=== PATIENT | female | born 1955 | race Caucasian/White ===

== ENCOUNTER → 2016-09-19 | Outpatient (CLI) | payer BC ==
--- NOTE | 2016-09-19 13:34 | DI ---
DUPLEX COLOR DOPPLER CAROTID ULTRASOUND, 09/19/2016 12:52 PM: Clinical History: Carotid bruit Previous Exam: None at this facility. Technique: 2D real time imaging is supplemented with duplex color doppler ultrasound imaging. RIGHT CAROTID ARTERY: 2D real time imaging of the right carotid system shows a normal appearance of the right common caroti d artery and the carotid bulb as well as the proximal internal and external carotid arteries. Peak sy stolic velocities through the right common carotid, the external carotid, and the internal carotid ar e 122 cm/s, 82 cm/s, and 106 cm/s, respectively. All values correspond to diameter stenoses of 0-49%. LEFT CAROTID ARTERY: 2D real time imaging of the left carotid system shows a normal appearance of the left common carotid artery and the carotid bulb as well as the proximal internal and external carotid arteries. Peak syst olic velocities through the left common carotid, the external carotid, and the internal carotid are 1 27 cm/s, 94 cm/s, and 95 cm/s, respectively. The values for the external and internal carotid arterie s correspond to diameter stenoses of 0-49%. The value for the common carotid artery corresponds to a diameter stenosis of 50-74%, but much closer to 50%. VERTEBRAL ARTERIES: There is antegrade flow through both vertebral arteries Cardiac rhythm is regular. Peak systolic [place] through the visualized portions of the right and left vertebral arteries are 59 cm/s and 93 cm /s, respectively. Both values correspond to diameter stenoses of 0-49%. Readin. There is no hemodynamically significant stenosis of either carotid system. 2. There is antegrade flow through both vertebral arteries. Cardiac rhythm is regular.
== END ==
LOC: US 12:46
PROVIDERS: ATTEND Nurse Practitioner Family
DX: R09.89 Other specified symptoms and signs involving the circulatory and respiratory systems (principal)
CPT/HCPCS: 93880

== ENCOUNTER 2016-09-21 18:35 | Emergency (ER) | payer BC ==
[2016-09-21] MEDS ORDERED: NORMAL SALINE 10 ML SYRINGE FLUSH IVP PRN (18:59)
[2016-09-21] MEDS ORDERED: ASPIRIN 81 MG (BABY) CHEWABLE TABLET PO ONE (18:59)
[2016-09-21] MEDS ORDERED: Sodium Chloride 0.9% 1,000 ML PRIMARY IV ONE (18:59)
--- NOTE | 2016-09-21 19:01 | EKG ---
[address] [address] Measurements Intervals [place] Rate: 71 P: 53 PA: 102 QRS: 59 QRSD: 66 T: 54 QT: 432 QTc: 454 Interpretive Statements SINUS RHYTHM WITH SHORT PA INTERVAL SEPTAL MYOCARDIAL INFARCTION , OF INDETERMINATE AGE, MAY BE LEAD POSITIONING No previous ECG available for comparison Electronically Signed On 09-22-16 16:55:15 MDT by Sammy Aquino [email or web address]
[2016-09-21 19:08] LABS: BASOPHILS # (AUTO) 0.07 10*3/UL; BASOPHILS % (AUTO) 0.9 % (0-1); BLOOD UREA NITROGEN 13 mg/dL (7-22); BUN/CREATININE RATIO 14.44 (6-20); CALCIUM 9.4 mg/dL (8.7-10.7); EOSINOPHILS # (AUTO) 0.06 10*3/UL; EOSINOPHILS % (AUTO) 0.7 % (0-8); EST GLOMERULAR FILTRATION > 60 (>60 ml/min/1.73m(2)); HEMATOCRIT 42.2 % (37.0-47.0); HEMOGLOBIN 14.3 g/dL (12.0-16.0); LYMPHOCYTES # (AUTO) 3.03 10*3/uL; MEAN CORPUSCULAR HEMOGLOBIN 31.2 PG (27-31); MEAN CORPUSCULAR HGB CONC 33.9 g/dL (33-37); MEAN CORPUSCULAR VOLUME 92.1 FL (81-99); MEAN PLATELET VOLUME 9.1 FL (7.4-12.2); MONOCYTES # (AUTO) 0.79 10*3/UL (0.3-0.8); MONOCYTES % (AUTO) 9.8 % (5-15); NEUTROPHILS # (AUTO) 4.07 10*3/UL; NEUTROPHILS % (AUTO) 50.8 % (50-80); PLATELET MORPHOLOGY COMMENT NORMAL MORPHOLOGY (NORM); RBC MORPHOLOGY COMMENT NORMAL MORPHOLOGY (NORM); RED BLOOD COUNT 4.58 10^6/uL (4.20-5.40); SERUM ALBUMIN 4.5 g/dL (3.5-4.8); WBC MORPHOLOGY COMMENT NORMAL MORPHOLOGY (NORM)
[2016-09-21 19:17] LABS: CREATINE KINASE MB 0.35 NG/ML (0.00-5.00)
[2016-09-21 19:18] LABS: TROPONIN I < 0.012 ng/mL (< 0.040)
[2016-09-21 19:21] VITALS: RESP 16; TEMP 98.8
[2016-09-21] MEDS ORDERED: NITROGLYCERIN 0.4 MG SL TAB (BOTTLE OF 3) SL ONE ×2 (19:55→19:56)
[2016-09-21] MEDS ORDERED: NITROGLYCERIN 0.4 MG SL TAB (BOTTLE OF 3) SL SCH (20:00)
--- NOTE | 2016-09-21 20:13 | DI ---
HISTORY: Chest pain PREVIOUS EXAM: None available. FINDINGS: A single view of the chest is obtained, and demonstrate clear lungs. The cardiomediastinum and bony thorax are unremarkable except for. The old healed right lateral rib fractures. There is no infiltrate nor effusion. IMPRESSION: 1. No acute cardiopulmonary disease.
--- NOTE | 2016-09-22 03:01 | PDOC ---
Chest Pain HPI - General Chief Complaint: Chest Pain Stated Complaint: CHEST PAIN Date Seen by Provider: 09/21/16 Time Seen by Provider: 18:45 Source: Patient, Spouse Exam Limitations: POSITIVE: No limitations Treatment Prior to Arrival: REPORTS: Other (Antacid) Nurse's Notes Reviewed & Considered: Yes - History of Present Illness Initial Comments: The patient is a 61 year old female. She presents to the emergency room stating that for the past 2 months she has been having intermittent episodes of left sided chest discomfort. She states that these episodes have gotten somewhat worse for the past week or so. She saw her nurse practitioner 5 days ago and the patient states that she performed a carotid ultrasound, which was reportedly normal. She describes the chest pain as "like a pressure"and states that her episodes can last several hours. She states she has some associated sensation of shortness of breath with these episodes and states that she feels "tired"she rates the intensity of these episodes as 4-6 on a scale of 10. She presently has minimal discomfort; she's had some discomfort for the past several hours. She states she had a normal cardiac stress test a few years ago. 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 Body Location Affected: REPORTS: Chest Timing: REPORTS: Intermittent Duration: 4-6 hours Severity: Moderate Persistent/Worse since (date): 09/21/16 Persistent/Worse since (time): 14:00 Context: REPORTS: Emotional Upset Quality: REPORTS: "Pain" Radiation: REPORTS: None Associated Symptoms: REPORTS: Shortness of Breath Modifying Factors: improves with: None Reported Similar Symptoms Previously: Yes (intermittently for 2 months) Recently seen/treated/hospitalized: Yes (saw primary care practitioner 5 days ago) Any Prior Injuries Related to Current Complaint?: No - Patient Home Medications Home Medications: Home Medications Fexofenadine HCl [Vita] 180 mg ORAL QD PRN #30 tab 03/13/11 Triamcinolone Acetonide [Nasacort] 1 spr TRI BID spr 07/28/14 Fluoxetine HCl 1 cap PO BID #60 capsule 09/16/16 Sumatriptan Succinate [Imitrex] 1 tab ORAL BID PRN #9 tab 09/16/16 Cimetidine [Tagamet] 300 mg PO DAILY 09/21/16 FLUoxetine HCl [PROzac] 20 mg PO DAILY 09/21/16 - Patient Allergies Allergies/Adverse Reactions: Allergies Allergy/AdvReac Type Severity Reaction Status Date / Time nortriptyline Allergy Severe hives Verified 09/21/16 18:53 erythromycin base Allergy Mild light rash Verified 09/21/16 18:53 Penicillins Allergy Mild light rash Verified 09/21/16 18:53 codeine AdvReac Intermediate VOMITING Verified 09/21/16 18:53 hydrocodone AdvReac Intermediate NAUSEA Verified 09/21/16 18:53 Past Medical History - heen HEENT History: Denies History Cardiovascular History: Denies History Respiratory History: Denies History Gastrointestinal History: Denies History Genitourinary History: Denies History Endocrine History: Denies History Musculoskeletal History: Fibromyalgia Neurological History: Migraines, Frequent Headaches Blood Disorders: Denies History Psychiatric History: Depression Female Reproductive History: Denies History Obstetrical History: Denies History Cancer History: Denies History In Past Year Been Physically Harmed or Verbally Threatened: No History of MDRO: No Tobacco Use: Never Smoker Alcohol Use: None Substance Use Type: None Previous Surgical History: Yes Type / Date of Surgery: C5 LAMINECTOMY, T&A Significant Family History: No pertinent family hx Past Medical History Reviewed: Reviewed - No Changes ROS - Limitations ROS Limitations: No Limitations Constitution: REPORTS: Denies Symptoms Cardiovascular: REPORTS: Chest Pain Respiratory: REPORTS: Shortness Of Breath Neurological: REPORTS: Denies Neuro Symptoms Gastrointestinal: REPORTS: Denies GI Symptoms Endocrine: REPORTS: Denies Symptoms Musculoskeletal: REPORTS: Denies MS Symptoms Genitourinary: REPORTS: Denies Symptoms Eyes: REPORTS: Denies Symptoms ENT: REPORTS: Denies Symptoms Skin: REPORTS: Denies Skin Symptoms Lympathic: REPORTS: Denies Lympathic Symptoms Immunologic: POSITIVE: Denies Symptoms Psychiatric: POSITIVE: Denies Psych Symptoms Chest Pain PE - General Appearance General Appearance: REPORTS: Alert, Cooperative, No Acute Distress, No Evidence of Trauma - HEENT HEENT: POSITIVE: Head Inspection Nml, Eyes Inspection Nml, Ears Inspection Nml, Nose Inspection Nml, Oral/Dental Inspect. Nml, Pharynx Inspect. Nml, PERRL, EOMI - Neck Neck: REPORTS: Normal Inspection, No Carotid Bruit - Respiratory Respiratory: REPORTS: No Respiratory Distress, Breath Sounds Normal, Chest Non- Tender - Cardiovascular Cardiovascular: REPORTS: Regular Rate and Rhythm, Heart Sounds Normal, Equal Pulses, Strong Pulses, No Murmur, No Gallop, No Friction Rub, No JVD Peripheral Pulses: Radial (R): 2+, Radial (L): 2+ - Abdomen Abdomen: Soft: (All Quadrants), Normal Bowel Sounds: (All Quadrants), Denies Tenderness: (All Quadrants), No Splenomegaly: (All Quadrants), No Hepatomegaly: (All Quadrants), No Guarding: (All Quadrants), No Rebound: (All Quadrants), No Palpable Pulse: (All Quadrants), No Palpabale Mass: (All Quadrants), No Distention: (All Quadrants), No Rigidity: (All Quadrants) - Skin Skin: REPORTS: Intact, Normal For Race, Warm, Dry, No Rash - Extremities Extremity: Non-Tender: (All Extremities), Normal ROM: (All Extremities), Normal Inspection: (All Extremities) - Neurological / Psychological Neurological: 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, 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 Normal As Tested, Motor Normal, Sensation Normal, 5, 6 Images - Complete Complete: 1 - Area of described discomfort Chest Pain Progress - Results Reviewed by me Xrays/CTs/US Reviewed by me: Yes Discussed with Radiologist: No Radiology Findings: Chest x-ray normal Lab Results Reviewed: Yes (all normal) Lab Results:: Laboratory Results 09/21/16 Range/Units 18:49 WBC 8.03 (4.8-10.8) 10^3/uL RBC 4.58 (4.20-5.40) 10^6/uL Hgb 14.3 (12.0-16.0) g/dL Hct 42.2 (37.0-47.0) % MCV 92.1 (81-99) FL MCH 31.2 H (27-31) PG MCHC 33.9 (33-37) g/dL RDW Std Deviation 43.4 (39-50) fL RDW Coeff of Yosef 13.0 (11.5-14.5) % Plt Count 340 (140-350) 10*3/uL MPV 9.1 (7.4-12.2) FL Immature Gran % (Auto) 0.1 (0-5) % Neut % (Auto) 50.8 (50-80) % Lymph % (Auto) 37.7 (10-50) % [place] % (Auto) 9.8 (5-15) % Eos % (Auto) 0.7 (0-8) % Baso % (Auto) 0.9 (0-1) % Immature Gran # (Auto) 0.01 10*3/UL Neut # (Auto) 4.07 10*3/UL Lymph # (Auto) 3.03 10*3/uL [place] # (Auto) 0.79 (0.3-0.8) 10*3/UL Eos # (Auto) 0.06 10*3/UL Baso # (Auto) 0.07 10*3/UL WBC Morphology Comment Normal morphology (NORM) Plt Morphology Comment Normal morphology (NORM) RBC Morph Comment Normal morphology (NORM) D-Dimer 0.35 (0.00-0.59) mg/L Sodium 139 (135-145) meq/L Potassium 3.6 L (3.8-5.2) meq/L Chloride 101 (98-112) meq/L Carbon Dioxide 29 (23-33) meq/L Anion Gap 9 (5-20) BUN 13 (7-22) mg/dL Creatinine 0.9 (0.50-1.20) mg/dL Estimated GFR > 60 (>60 ml/min/1.73m(2)) BUN/Creatinine Ratio 14.44 (6-20) Glucose 75 L (78-110) mg/dL Calculated Osmolality 286.0 (267-292) mOsm/kg Calcium 9.4 (8.7-10.7) mg/dL Total Bilirubin 0.5 (0.3-1.2) mg/dL AST 26 (8-39) IU/L ALT 28 (9-52) IU/L Alkaline Phosphatase 77 (38-126) IU/L CK-MB (CK-2) 0.35 (0.00-5.00) NG/ML Troponin I < 0.012 (< 0.040) ng/mL Total Protein 7.1 (6.1-8.0) g/dL Albumin 4.5 (3.5-4.8) g/dL Globulin 2.6 (2.50-4.10) g/dL Albumin/Globulin Ratio 1.70 (1.3-2.0) mg/g TSH 3.76 (0.2700-4.2000) uIU/mL EKG Interpreted/Reviewed By Me:: Yes (normal) EKG Interpretation:: POSITIVE: Normal Sinus Rhythm, Normal Rate, Normal Intervals, Normal [place], Normal QRS, Normal ST/T - Patient's Progress Pain Medication Addressed: POSITIVE: Yes (Patient given nitroglycerin sublingual with apparent relief of discomfort) School/Work Release Addressed: POSITIVE: Not Applicable Re-Examine Time: 20:00 Re-Examine Comment: Options of treatment discussed with patient and her . Discussed case with Dr. Smith, hospitalist here. He declines to admit patient here on rule out protocol on the basis that we will not have capabilities for stress testing until Friday. I offered to arrange for patient to be transferred to [facility], but patient declined at this recommendation. Patient and elected to go home, take aspirin daily, and follow-up with their primary care provider Friday to arrange for stress testing and further evaluation. Patient instructed to return here anytime if condition worsens in any way. Status: POSITIVE: Improved, Re-Examined Quality Measure Initiative: CP/AMI: POSITIVE: EKG, ASA - Consult Consult (If Yes, Name of Consulting MD & Time Called): Yes (Dr. Smith, hospitalist, 1999) Counseled: POSITIVE: Patient, Family, RE: Lab Results, RE: Radiology Results, RE : DX, RE: Need for F/U Patient Care Time - Estimated PCT Patient Care Time (In Minutes): 50 Vital Signs - Recent Vital Signs Vital Signs: Vital Signs (Last 8 hours) Pulse Resp BP 09/21/16 20:08 96 16 90/64 09/21/16 20:02 74 16 108/76 09/21/16 19:23 76 120/74 - VS Reviewed Vital Signs Reviewed: Yes Discharge Clinical Impression: Chest pain Discharge Disposition: Discharged to Home Condition: Stable Patient Instructions Given at Discharge: Chest Pain (ED) Additional Instructions: Your electrocardiogram, blood tests and chest x-ray are all normal. There is no evidence at this time that you have had a heart attack recently or blood clot to the lung, or other serious cardiopulmonary problems. However, you may still have coronary artery disease of the heart, in spite of your negative evaluation in the emergency room today. Therefore, I cannot give you a completely clean bill of health regarding your heart at this time. Alternatives of treatment were discussed with your self and your . As discussed, the safest approach would be to be admitted to the [facility], since our hospitalist here advises me that he cannot care for you at this time, for further evaluation and treatment, including a cardiac stress test. Alternatively, you can follow-up with your primary care provider and arrange for a cardiac stress test as an outpatient. You have chosen this option. Please take one baby aspirin daily. Nitroglycerin, one sublingually as necessary for chest pain. Return to the emergency room any time if condition worsens in any way whatsoever. Please contact your primary care provider Friday and arrange for further evaluation. Again, return here anytime if condition worsens in any way whatsoever. Follow Up With: GEORGIANA LEACH [STAFF PHYSICIAN] - (Instructions as above. Return here anytime if condition worsens in any way.)
== END 2016-09-21 20:53 | disposition home or self-care (01) ==
LOC: ER 18:35
DX: R07.9 Chest pain, unspecified (principal); R06.02 Shortness of breath
CPT/HCPCS: 71010; 80053; 82553; 84443; 84484; 85025; 85379; 93005; 93010; 99284; J7030

== ENCOUNTER 2016-10-11 08:53 | Day surgery (SDC) | payer BC ==
[~2016-10-11 08:53] MED LIST: LIDOCAINE 2% VISCOUS(20 MG/1 ML) - 15 ML UD CUP PO ONE; LIDOCAINE W/ SODIUM BICARB 0.5 ML SYR ONE; Lactated Ringers 1,000 ML PRIMARY IV ONE
--- NOTE | 2016-10-11 10:43 | GEN.OPNOTE ---
EGD Operative Note Surgery Date: 10/11/16 Preoperative Diagnosis: Atypical chest pain. Postoperative Diagnosis: Atypical chest pain. Procedure: Esophagogastroduodenoscopy with biopsy. Surgeon: Elgin Ware MD Anesthesia Provider: Yashira Pierce CRNA Anesthesia Type: MAC Indications: Patient with atypical chest pain. Cardiac workup negative. Proceed with upper endoscopy. We'll consider CT scanning of her chest with attention to the mediastinum pending findings on upper endoscopy with biopsies. Findings: Esophagus: [Normal] GE Junction : [Normal but patulous.] Fundus : [Normal] Body : [Normal] Prepyloric : [Normal] Small Intestine : [Normal] A lubricated flexible upper endoscope was inserted and passed through the esophagus and stomach into the duodenum. The duodenum and duodenal bulb were unremarkable. The pyloric channel was widely patent. The entire gastric mucosa was unremarkable. There is some laxity at the GE junction. Scope was straightened. Antral biopsies were taken. Hemostasis was assured. The scope was withdrawn in the distal esophagus. Biopsies were taken at and above the Z line. Hemostasis was assured. The scope was withdrawn slowly through an entirely normal looking esophagus. There is no evidence of spasm or strictures. There was no significant inflammation. The scope was brought the hypopharynx under suction completing the procedure. Patient tolerated the procedure well without complication. She was taken to outpatient surgery in stable condition Follow-up will be with my office on an as-needed basis. We will call the biopsy results when available and plan therapy, further workup, and follow-up accordingly. Estimated Blood Loss (mL): 1 Fluids: 600 mL crystalloid. Pathology: Antral biopsies and distal esophageal biopsy sent to pathology. Complications: None.
[2016-10-11 11:36] VITALS: RESP 16; TEMP 97.4
== END 2016-10-11 11:07 | disposition home or self-care (01) ==
LOC: SDSC 08:53
PROVIDERS: ATTEND Surgery
DX: R07.89 Other chest pain (principal)
CPT/HCPCS: 43239; J2704; J7120

== ENCOUNTER → 2016-12-18 | Outpatient (CLI) | payer BC ==
--- NOTE | 2016-12-23 10:24 | DI ---
Tc-99 SULFUR COLLOID GASTRIC EMPTYING SCAN, 12/18/2016 7:30 AM : Clinical History: Epigastric fullness. Previous Related Exam: None. The patient was given oatmeal mixed with 1 mCi of Tc-99 sulfur colloid. Sequential anterior imaging i s performed at one minute intervals out to 90 minutes. The duration of the lag time before emptying b egins is 26 minutes. Gastric T1/2 emptying time was calculated and is 84 minutes. Gastric emptying at 90 minutes is calculated to be 56 %. Readin. The gastric T1/2 emptying time is 84 minutes and this is delayed. 2. Gastric emptying at 90 minutes is 56%.
== END ==
LOC: NM 07:28
PROVIDERS: ATTEND Nurse Practitioner Family
DX: R19.06 Epigastric swelling, mass or lump (principal); R10.13 Epigastric pain; K59.01 Slow transit constipation
CPT/HCPCS: 78264; A9541